=== PATIENT | female | born 1955 | race Caucasian/White ===

== ENCOUNTER → 2017-01-31 | Outpatient (CLI) | payer OTHER | LOC: FIMAGING 08:09 | PROVIDERS: ATTEND Obstetrics & Gynecology Gynecology | DX: Z12.31 Encounter for screening mammogram for malignant neoplasm of breast (principal) | CPT/HCPCS: G0202 ==

== ENCOUNTER → 2017-10-29 | Outpatient (CLI) | payer OTHER ==
[~2017-10-29] MED LIST: IOPAMIDOL (ISOVUE-300) 100 ML BTL ONE
== END ==
LOC: FIMAGING 06:59
PROVIDERS: ATTEND Internal Medicine
DX: D37.6 Neoplasm of uncertain behavior of liver, gallbladder and bile ducts (principal)
CPT/HCPCS: Q9967

== ENCOUNTER 2017-11-04 08:43 | Outpatient (CLI) | payer OTHER ==
[2017-11-04] MEDS ORDERED: MIDAZOLAM 2 MG/2 ML VIAL IVP PRN (09:05)
[2017-11-04] MEDS ORDERED: PROTAMINE SULFATE 50 MG/5 ML VIAL IVP PRN (09:05)
[2017-11-04] MEDS ORDERED: GLUCAGON HCL 1 MG VIAL IVP PRN (09:05)
[2017-11-04] MEDS ORDERED: HEPARIN 10,000 UNIT/10 ML MDV (1,000 UNIT/ML) IVP PRN (09:05)
[2017-11-04] MEDS ORDERED: NALOXONE HCL 0.4 MG/ML INJ IVP PRN (09:05)
[2017-11-04] MEDS ORDERED: FLUMAZENIL 0.5 MG/5 ML MDV IVP PRN (09:05)
[2017-11-04] MEDS ORDERED: MEPERIDINE 25 MG/ML SYR IVP PRN (09:05)
[2017-11-04] MEDS ORDERED: fentaNYL 100 MCG/2 ML INJ IVP PRN (09:05)
[2017-11-04] MEDS ORDERED: ALTEPLASE 2 MG VIAL IVP PRN (09:05)
[2017-11-04] MEDS ORDERED: NALOXONE HCL 0.4 MG/ML INJ ONE (09:14)
[2017-11-04] MEDS ORDERED: ONDANSETRON 4 MG/2 ML VIAL ONE (09:14)
[2017-11-04] MEDS ORDERED: FLUMAZENIL 0.5 MG/5 ML MDV IVP ONE (09:15)
[2017-11-04] MEDS ORDERED: NS 1,000 ML IV SCH (09:15)
[2017-11-04] MEDS ORDERED: fentaNYL 100 MCG/2 ML INJ ONE (09:15)
[2017-11-04] MEDS ORDERED: MIDAZOLAM 2 MG/2 ML VIAL ONE (09:15)
[2017-11-04] MEDS ORDERED: LIDOCAINE 1% 300 MG/30 ML SDV ONE (09:33)
--- NOTE | 2017-11-04 10:07 | PDRADPRE ---
Radiology History & Physical Indication for procedure: liver disease Home medications: Proair Hfa 1 - 2 puffs IH PRN PRN 10/31/17 [Last Taken Unknown] Allergies/Adverse Reactions: Penicillins Allergy (Verified 10/31/17 10:07) Mental status: A&Ox3 Heart exam: regular rate and rhythm Mallampati Score: Class 2 (ASA 2)
[2017-11-04] MEDS ORDERED: ONDANSETRON 4 MG/2 ML VIAL IVP PRN (10:59)
[2017-11-04] MEDS ORDERED: oxyCODONE IR 5 MG TAB PO PRN (10:59)
--- NOTE | 2017-11-04 10:59 | PDRADPN ---
Radiology Procedure Note Date of Procedure: 11/04/17 Radiologist: Bo Stevens Anesthesia: IV Sedation Pre-op Diagnosis: liver mass Post-op Diagnosis: same Procedure: US guided liver mass biopsy Inf/Abcess present in the surg proc area at time of surgery?: No
[2017-11-04 14:37] VITALS: BP 124/85
== END 2017-11-04 14:15 | disposition home or self-care (01) ==
LOC: FIMAGING 08:43
PROVIDERS: ATTEND Internal Medicine
PROC: 0FB13ZX Excision of Right Lobe Liver, Percutaneous Approach, Diagnostic (ICD-10-PCS; principal; 2017-11-04 11:15)
DX: C78.7 Secondary malignant neoplasm of liver and intrahepatic bile duct (principal); R10.11 Right upper quadrant pain
CPT/HCPCS: J2250; J2310; J2405; J3010

== ENCOUNTER → 2017-12-27 | Day surgery (SDC) | payer OTHER ==
[~2017-12-27] MED LIST changes: +ALTEPLASE 2 MG VIAL IVP PRN; +FLUMAZENIL 0.5 MG/5 ML MDV IVP ONE; +FLUMAZENIL 0.5 MG/5 ML MDV IVP PRN; +GLUCAGON HCL 1 MG VIAL IVP PRN; +HEPARIN 10,000 UNIT/10 ML MDV (1,000 UNIT/ML) IVP PRN; -IOPAMIDOL (ISOVUE-300) 100 ML BTL ONE; +IOPAMIDOL (ISOVUE-370) 150 ML BTL IV ONE; +KETOROLAC 15 MG/1 ML SDV ONE; +KETOROLAC 30 MG/1 ML SDV IVP ONE; +LIDOCAINE 1% 300 MG/30 ML SDV ONE; +MEPERIDINE 25 MG/ML SYR IVP PRN; +MIDAZOLAM 2 MG/2 ML VIAL IVP PRN; +MIDAZOLAM 2 MG/2 ML VIAL ONE; +NALOXONE HCL 0.4 MG/ML INJ IVP PRN; +NALOXONE HCL 0.4 MG/ML INJ ONE; +NS 1,000 ML IV ONE; +ONDANSETRON 4 MG/2 ML VIAL IVP ONE; +ONDANSETRON 4 MG/2 ML VIAL IVP PRN; +ONDANSETRON 4 MG/2 ML VIAL ONE; +OXYCODONE/APAP 5/325 TAB PO PRN; +PANTOPRAZOLE SODIUM 40 MG VIAL IVP ONE; +PROTAMINE SULFATE 50 MG/5 ML VIAL IVP PRN; +fentaNYL 100 MCG/2 ML INJ IVP PRN; +fentaNYL 100 MCG/2 ML INJ ONE; +methylPREDNISolone SOD SUCC 125 MG/2 ML VIAL IVP ONE; +methylPREDNISolone SOD SUCC 125 MG/2 ML VIAL ONE
[2017-12-27 10:17] VITALS: BP 140/85
--- NOTE | 2017-12-27 12:25 | PDPROPOC ---
Sedation Plan of Care Sedation Plan of Care: vital signs stable, mental status noted, patient educated of risks, benefits, alternatives, patient can tolerate sedation ASA Classification: ASA 2 Planned drugs: fentanyl, midazolam Mallampati Score: Class 2 Mallampati Reference Image: Patient passed 3-3-2 rule?: Yes
--- NOTE | 2017-12-27 12:25 | PDRADPRE ---
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
--- NOTE | 2017-12-27 14:59 | PDRADPN ---
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 Liver/lung shunt ratio 3%. Successful treatment of right hepatic tumors. Inf/Abcess present in the surg proc area at time of surgery?: No
== END ==
LOC: FIMAGING 09:29
PROVIDERS: ATTEND Radiology Vascular & Interventional Radiology
PROC: 04L33ZZ Occlusion of Hepatic Artery, Percutaneous Approach (ICD-10-PCS; principal; 2017-12-27)
PROC: B44 Imaging, Lower Arteries, Ultrasonography (ICD-10-PCS; principal; 2017-12-27)
PROC: B4121ZZ Fluoroscopy of Hepatic Artery using Low Osmolar Contrast (ICD-10-PCS; principal; 2017-12-27)
PROC: B44LZZZ Ultrasonography of Femoral Artery (ICD-10-PCS; principal; 2017-12-27)
PROC: B41B1ZZ Fluoroscopy of Other Intra-Abdominal Arteries using Low Osmolar Contrast (ICD-10-PCS; principal; 2017-12-27)
DX: C78.7 Secondary malignant neoplasm of liver and intrahepatic bile duct (principal); C69.30 Malignant neoplasm of unspecified choroid
CPT/HCPCS: 37243; 75726; 77790; 78205; 79445; 99152; 99153; A9540; C1769; C1894; C1760; J1200; J1644; J1885; J2250; J2310; J2405; J2930; J3010; Q9967

== ENCOUNTER 2018-01-04 15:24 | Emergency (ER) | payer OTHER ==
[2018-01-04] MEDS ORDERED: MAGNESIUM CITRATE 300 ML BOTTLE PO ONE (17:43)
--- NOTE | 2018-01-04 17:43 | EDPHY ---
H & P Stated Complaint: No BM since 12/27, on oxycodone after IR procedure Time Seen by Provider: 01/04/18 16:35 HPI/ROS: CHIEF COMPLAINT: No bowel movement in 1 week HISTORY OF PRESENT ILLNESS: 60-year-old female with liver cancer presents with no bowel movement in last week. She was recently started on oxycodone for pain control. Last bowel movement was 1 week ago. She has tried multiple laxatives and stool softeners without relief. Associated with mild pelvic cramping. No nausea or vomiting. REVIEW OF SYSTEMS: complete 10 point ROS reviewed and is negative except for the noted findings in the HPI - Personal History Current Tetanus/Diphtheria Vaccine: Unsure Current Tetanus Diphtheria and Acellular Pertussis (TDAP): Unsure - Medical/Surgical History Hx Asthma: Yes Hx Chronic Respiratory Disease: No Hx Diabetes: No Hx Cardiac Disease: No Hx Renal Disease: No Hx Cirrhosis: No Hx Alcoholism: No Hx HIV/AIDS: No Hx Splenectomy or Spleen Trauma: No Other PMH: Liver cancer, asthma, fistulectomy 2004 - Social History Smoking Status: Never smoked Additional Social History: - Physical Exam Exam: General Appearance: Alert, pleasant Eyes: Pupils equal and round, no conjunctival pallor ENT, Mouth: Mucous membranes moist Neck: Normal inspection Respiratory: Lungs are clear to auscultation Cardiovascular: Regular rate and rhythm Gastrointestinal: Abdomen is soft and nontender Rectal: Stool glendy in the vault, no fecal impaction Neurological: A&O, nonfocal, normal gait Skin: Warm and dry Extremities: Nontender, no pedal edema Psychiatric: Mood and affect normal Constitutional: Initial Vital Signs Temperature (C) 37.4 C 01/04/18 15:41 Heart Rate 118 H 01/04/18 15:41 Respiratory Rate 18 01/04/18 15:41 Blood Pressure 103/64 01/04/18 15:41 O2 Sat (%) 95 01/04/18 15:41 O2 Delivery Mode Room Air Allergies/Adverse Reactions: Penicillins Allergy (Verified 10/31/17 10:07) Home Medications: Medication Instructions Recorded Proair Hfa 1 - 2 puffs IH PRN PRN 10/31/17 Medical Decision Making ED Course/Re-evaluation: Soapsuds enema given. The patient had a large bowel movement after the enema. Pt felt much better after BM. Abd soft, NT. Magnesium citrate given for use at home. Differential Diagnosis: includes though not limited to fecal impaction, SBO, diverticulitis - Data Points Medications Given: Discontinued Medications Magnesium Citrate (Magnesium Citrate) 300 ml PO EDNOW ONE Stop: 01/04/18 17:44 Last Admin: 01/04/18 18:00 Dose: 1 btl Departure - Departure Disposition: Home, Routine, Self-Care Clinical Impression: Constipation Qualifiers: Constipation type: drug induced constipation Qualified Code(s): K59.03 - Drug induced constipation Condition: Good Instructions: Magnesium Citrate (By mouth), Constipation (ED), High Fiber Diet (ED) Referrals: Pedrito Douglas MD [Primary Care Provider] - As per Instructions
[2018-01-04 18:03] VITALS: BP 118/78
== END 2018-01-04 18:03 | disposition home or self-care (01) ==
DX: K59.03 Drug induced constipation (principal); Z85.05 Personal history of malignant neoplasm of liver; Z79.891 Long term (current) use of opiate analgesic

== ENCOUNTER 2018-01-10 14:21 | Emergency (ER) | payer OTHER ==
[2018-01-10] MEDS ORDERED: NS 1,000 ML IV ONE (14:52)
--- NOTE | 2018-01-10 14:55 | EDPHY ---
HPI/HX/ROS/PE/MDM Narrative: CHIEF COMPLAINT: Fever, malaise HPI: The patient is a 62 y/o female with melanoma metastatic to her liver arriving with her family complaining of a fever and malaise for the last 2 days. She reports she's had difficulty recovering to baseline since an IR procedure on 12/27/17, 2 weeks ago, where they directed radiation directly into her liver. A week after this procedure she had severe constipation thought secondary to pain medication and required an enema in the ED for relief. This issue has not recurred. On Saturday, 2 days ago, she was evaluated at [facility] for weight loss and during that visit they noted a fever. Her fever continued yesterday and she started a course of Ciprofloxacin, of which she has taken two doses. She saw her physician at [facility] this morning for follow up and had multiple labs performed including blood cultures, stool sample, and UA that she has not yet received results for. She was advised to come to the ED for worsening symptoms. She says currently, "I'm generally feeling crummy." She's noticed some mild rhinorrhea, headaches, and diaphoresis that she attributes to the radiation therapy. She denies new cough, vomiting, diarrhea. She notes a recent PET scan did not show metastases. REVIEW OF SYSTEMS: Aside from elements discussed in the HPI, a comprehensive 10-point review of systems was reviewed and is negative. 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 Prior medical records reviewed including ED visit 01/04/18 for no bowel movement. Lab results from [facility] today reviewed. PHYSICAL EXAM: General:Patient is alert, in no acute distress. Thin. ENT:Eyes are normal to inspection. ENT inspection normal. Neck: Normal inspection. Full range of motion. Respiratory:No respiratory distress. Breath sounds normal bilaterally. Cardiovascular: Regular rate and rhythm. Strong peripheral pulses. Normal cap refill. Abdomen:The abdomen is nontender to palpation. There are no peritoneal signs. Back: Normal to inspection. No tenderness to palpation. Skin: Normal color. No rash. Warm and dry. Extremities: Normal appearance. Full range of motion. Neuro: Oriented x3. Normal motor function. Normal sensory function. ED Course: This is a 62 y/o female with liver cancer who presents with a 2-day history of recurrent fever and associated malaise. She is thin-appearing on exam with no other acute findings. Concern for various sources of infection. She is currently afebrile and normotensive. Plan for IV, labs including cultures, and symptom management as needed. 1L IV NS ordered. Chest x-ray: negative. Respiratory pathogen panel negative. UA negative. Lactic acid elevated 2.5. 1L IV NS ordered. 1900: Consulted with Dr. Plaza, oncology. He recommends discharge with outpatient followup. Reassessed patient and discussed recommendations. She is comfortable with plan for discharge home. Return precautions discussed. - Data Points Imaging Results: Imaging Impressions Chest X-Ray 01/10/18 14:51 Impression: Normal chest. Imaging: I viewed and interpreted images myself Laboratory Results: 01/10/18 01/10/18 17:03 15:15 VBG Lactic Acid 2.5 mmol/L H mmol/L (0.7-2.1) Urine Color PALE YELLOW Urine Appearance CLEAR Urine pH 5.0 (5.0-7.5) Ur Specific [place] 1.003 (1.002-1.030) Urine Protein NEGATIVE (NEGATIVE) Urine Ketones NEGATIVE (NEGATIVE) Urine Blood NEGATIVE (NEGATIVE) Urine Nitrate NEGATIVE (NEGATIVE) Urine Bilirubin NEGATIVE (NEGATIVE) Urine Urobilinogen NEGATIVE EU EU (0.2-1.0) Ur Leukocyte Esterase NEGATIVE (NEGATIVE) Urine Glucose NEGATIVE (NEGATIVE) Medications Given: Discontinued Medications Sodium Chloride (Ns) 1,000 mls @ 0 mls/hr IV EDNOW ONE; Wide Open PRN Reason: Protocol Stop: 01/10/18 14:53 Last Admin: 01/10/18 15:15 Dose: 1,000 mls Ibuprofen (Motrin) 200 mg PO EDNOW ONE Stop: 01/10/18 17:45 Last Admin: 01/10/18 17:48 Dose: 200 mg Microbiology Results: MICROBIOLOGY 01/10/18 15:59 Nasal, Sinus - Swab Respiratory Panel (PCR) - Final No Organism Detected General Time Seen by Provider: 01/10/18 14:46 Initial Vital Signs: Initial Vital Signs Temperature (C) 37.5 C 01/10/18 14:37 Heart Rate 122 H 01/10/18 14:37 Respiratory Rate 20 01/10/18 14:37 Blood Pressure 109/66 01/10/18 14:37 O2 Sat (%) 96 01/10/18 14:37 O2 Delivery Mode Room Air Allergies/Adverse Reactions: Penicillins Allergy (Verified 10/31/17 10:07) Home Medications: Medication Instructions Recorded Proair Hfa 1 - 2 puffs IH PRN PRN 10/31/17 Cipro 01/10/18 Departure - Departure Disposition: Home, Routine, Self-Care Clinical Impression: fever of unknown etiology Condition: Good Instructions: Fever in Adults (ED) Additional Instructions: Follow up with your oncologist as needed. Return to the ED for any worsening of condition. Referrals: Pedrito Douglas MD [Primary Care Provider] - As per Instructions Report Scribed for: Luis E Cox Report Scribed by: Beryl Rodrigues Date of Report: 01/10/18 Time of Report: 14:52 Physician Review and Approval Statement: Portions of this note were transcribed by an ED scribe. I personally performed the history, physical exam, and medical decision making; and confirm the accuracy of the information in the transcribed note.
[2018-01-10] MEDS ORDERED: IBUPROFEN 200 MG TAB PO ONE (17:44)
[2018-01-10 19:25] VITALS: BP 119/76
== END 2018-01-10 19:23 | disposition home or self-care (01) ==
DX: R50.9 Fever, unspecified (principal); R53.81 Other malaise; C22.9 Malignant neoplasm of liver, not specified as primary or secondary; E86.9 Volume depletion, unspecified

== ENCOUNTER 2018-02-04 10:32 | Inpatient (IN) | payer OTHER ==
[2018-02-04] MEDS ORDERED: HYDROmorphONE/DILAUDID 2 MG/ML INJ IVP ONE ×2 (11:09→12:48)
[2018-02-04] MEDS ORDERED: ONDANSETRON 4 MG/2 ML VIAL IVP ONE (11:09)
[2018-02-04] MEDS ORDERED: NS 1,000 ML IV ONE (11:09)
--- NOTE | 2018-02-04 11:12 | EDPHY ---
H & P Time Seen by Provider: 02/04/18 10:49 HPI/ROS: CHIEF COMPLAINT: Abdominal pain HISTORY OF PRESENT ILLNESS: Patient has a history of melanoma metastatic to liver. Interventional Radiology procedure for "Y90" on 12/27, biopsy on November 04. Has had low-grade right-sided upper abdominal discomfort since her diagnosis and biopsy in October, had much worse pain starting at 4:00 a.m. Today. It radiates all the way across her upper abdomen to the middle. Severe and not influence or helped by 2 OxyContin tablets that she took this morning. Worse with movement. Not associated with vomiting or diarrhea. No fever or chills. REVIEW OF SYSTEMS: Eye: no change in vision ENT: no sore throat Cardiac: no chest pain or syncope Pulmonary: no cough or SOB Abdomen: HPI Musculoskeletal: no back pain Skin: no rash Neuro: no headache Constitutional: no fever : no urinary symptoms A comprehensive 10 point review of systems is otherwise negative aside from elements mentioned in the history of present illness. PAST MEDICAL HISTORY: Melanoma metastatic to liver, asthma Social history: Here with spouse General Appearance: Alert and conversant, cooperative. Eyes: No scleral icterus. ENT, Mouth: Normal mucous membranes. Respiratory: Normal respiratory effort, breath sounds equal, lungs are clear to auscultation. Cardiovascular: Regular rate and rhythm. Gastrointestinal: Right upper quadrant and right lower quadrant abdominal tenderness, decreased bowel sounds. Neurological: Alert, face symmetric, normal motor and sensory in extremities. Skin: Warm and dry, no rashes. Musculoskeletal: No peripheral edema. Psychiatric: Not agitated. Emergency Department course/MDM: Dilaudid 1 mg IV, CT scanning discussed and consented. Liver function test and lipase. 1216: CT per Isuani shows worse liver mets, otherwise negative; no other reason for abdominal pain. Discussed results with the patient, plan to admit for pain control, oncology consultation. Patient's symptoms are pretty clearly abdominal, I think that pulmonary embolism or cardiac problem is unlikely. Does not appear to at this time have acute surgical abdominal process. Smoking Status: Never smoked Constitutional: Initial Vital Signs Temperature (C) 37.1 C 02/04/18 10:40 Heart Rate 101 H 02/04/18 10:40 Respiratory Rate 16 02/04/18 10:40 Blood Pressure 107/72 02/04/18 10:40 O2 Sat (%) 95 02/04/18 10:40 O2 Delivery Mode Room Air Allergies/Adverse Reactions: Penicillins Allergy (Verified 02/04/18 13:03) Home Medications: Medication Instructions Recorded Ibuprofen [Motrin (*)] 200 mg PO DAILY PRN 02/04/18 oxyCODONE IR [Oxycodone Ir (*)] 5 mg PO Q4 PRN 02/04/18 Medical Decision Making - Diagnostics Imaging Results: Imaging Impressions Abdomen CT 02/04/18 11:29 Impression: 1. Worsening diffuse hepatic metastasis and enlargement of the liver with partial necrosis of the right lobe hepatic metastasis post Y-90 intra-arterial therapy. 2. Mild constipation without bowel obstruction or dilation. 3. No urinary tract obstruction, abscess or pneumoperitoneum. 4. Minimal ascites in the abdomen and pelvis. Findings and recommendations discussed with Emergency Department physician, Alphonso Jenkins at 1221 hour, 02/04/2018. Final report concurs with initial preliminary interpretation. Differential Diagnosis: Differential diagnosis considered for abdominal pain including but not limited to appendicitis, cholecystitis, pancreatitis, increasing tumor, bowel obstruction. Consult/Admit Bed Type: [place] [id number] - Data Points Laboratory Results: Laboratory Results 02/04/18 11:13 02/04/18 11:13 02/04/18 02/04/18 02/04/18 11:18 11:13 11:13 WBC 9.61 10^3/uL H 10^3/uL (3.80-9.50) RBC 3.96 10^6/uL L 10^6/uL (4.18-5.33) Hgb 10.6 g/dL L g/dL (12.6-16.3) POC Hgb 12.2 gm/dL L gm/dL (12.6-16.3) Hct 33.5 % L % (38.0-47.0) POC Hct 36 % L % (38-47) MCV 84.6 fL fL (81.5-99.8) MCH 26.8 pg L pg (27.9-34.1) MCHC 31.6 g/dL L g/dL (32.4-36.7) RDW 15.1 % % (11.5-15.2) Plt Count 473 10^3/uL H 10^3/uL (150-400) MPV 9.9 fL fL (8.7-11.7) Neut % (Auto) 82.0 % H % (39.3-74.2) Lymph % (Auto) 10.9 % L % (15.0-45.0) [place] % (Auto) 6.0 % % (4.5-13.0) Eos % (Auto) 0.3 % L % (0.6-7.6) Baso % (Auto) 0.5 % % (0.3-1.7) Nucleat RBC Rel Count 0.0 % % (0.0-0.2) Absolute Neuts (auto) 7.87 10^3/uL H 10^3/uL (1.70-6.50) Absolute Lymphs (auto) 1.05 10^3/uL 10^3/uL (1.00-3.00) Absolute Monos (auto) 0.58 10^3/uL 10^3/uL (0.30-0.80) Absolute Eos (auto) 0.03 10^3/uL 10^3/uL (0.03-0.40) Absolute Basos (auto) 0.05 10^3/uL 10^3/uL (0.02-0.10) Absolute Nucleated RBC 0.00 10^3/uL 10^3/uL (0-0.01) Immature Gran % 0.3 % % (0.0-1.1) Immature Gran # 0.03 10^3/uL 10^3/uL (0.00-0.10) POC Sodium 137 mEq/L mEq/L (135-145) Sodium 136 mEq/L mEq/L (135-145) POC Potassium 4.4 mEq/L mEq/L (3.3-5.0) Potassium 4.7 mEq/L mEq/L (3.3-5.0) POC Chloride 101 mEq/L mEq/L (97-110) Chloride 100 mEq/L mEq/L (97-110) Carbon Dioxide 24 mEq/l mEq/l (22-31) Anion Gap 12 mEq/L mEq/L (8-16) POC BUN 18 mg/dL mg/dL (7-23) BUN 19 mg/dL mg/dL (7-23) Creatinine 0.5 mg/dL L mg/dL (0.6-1.0) POC Creatinine 0.4 mg/dL L mg/dL (0.6-1.0) Estimated GFR > 60 Glucose 113 mg/dL H mg/dL (70-100) POC Glucose 114 mg/dL H mg/dL (70-100) Calcium 9.4 mg/dL mg/dL (8.5-10.4) Total Bilirubin 0.5 mg/dL mg/dL (0.1-1.4) Conjugated Bilirubin 0.2 mg/dL mg/dL (0.0-0.5) Unconjugated Bilirubin 0.3 mg/dL mg/dL (0.0-1.1) AST 39 IU/L IU/L (14-46) ALT 33 IU/L IU/L (9-52) Alkaline Phosphatase 228 IU/L H IU/L (38-126) Total Protein 7.8 g/dL g/dL (6.3-8.2) Albumin 3.8 g/dL g/dL (3.5-5.0) Lipase 176 IU/L IU/L (23-300) Medications Given: Discontinued Medications Hydromorphone HCl (Dilaudid) 1 mg IVP EDNOW ONE Stop: 02/04/18 11:10 Last Admin: 02/04/18 11:17 Dose: 1 mg Hydromorphone HCl (Dilaudid) 1 mg IVP EDNOW ONE Stop: 02/04/18 12:49 Last Admin: 02/04/18 12:53 Dose: 1 mg Sodium Chloride (Ns) 1,000 mls @ 0 mls/hr IV EDNOW ONE; Wide Open PRN Reason: Protocol Stop: 02/04/18 11:10 Last Admin: 02/04/18 11:17 Dose: 1,000 mls Ondansetron HCl (Zofran) 4 mg IVP EDNOW ONE Stop: 02/04/18 11:10 Last Admin: 02/04/18 11:17 Dose: 4 mg Point of Care Test Results: Chemistry 02/04/18 11:18 POC Sodium 137 mEq/L mEq/L (135-145) POC Potassium 4.4 mEq/L mEq/L (3.3-5.0) POC Chloride 101 mEq/L mEq/L (97-110) POC BUN 18 mg/dL mg/dL (7-23) POC Creatinine 0.4 mg/dL L mg/dL (0.6-1.0) POC Glucose 114 mg/dL H mg/dL (70-100) ISTAT H&H 02/04/18 11:18 POC Hgb 12.2 gm/dL L gm/dL (12.6-16.3) POC Hct 36 % L % (38-47) Departure - Departure Disposition: [facility] Inpatient Acute Clinical Impression: Abdominal pain Qualifiers: Abdominal location: right upper quadrant Qualified Code(s): R10.11 - Right upper quadrant pain Melanoma Qualifiers: Melanoma location: unspecified site Qualified Code(s): C43.9 - Malignant melanoma of skin, unspecified Condition: Fair
[2018-02-04 11:30] LABS: PLATELET COUNT 473 10^3/uL (150-400)
[2018-02-04] MEDS ORDERED: IOPAMIDOL (ISOVUE-300) 100 ML BTL ONE (11:39)
[2018-02-04] MEDS ORDERED: OXYCODONE/APAP 5/325 TAB PO PRN (15:39)
[2018-02-04] MEDS ORDERED: ONDANSETRON 4 MG/2 ML VIAL IVP PRN (15:39)
[2018-02-04] MEDS ORDERED: NALOXONE HCL 0.4 MG/ML INJ IVP PRN (15:40)
[2018-02-04] MEDS ORDERED: HYDROmorphONE/DILAUDID 6 MG/30 ML PCA IV PRN (15:40)
[2018-02-04] MEDS ORDERED: LACTULOSE 20 GM/30 ML UDCUP PO PRN (15:42)
[2018-02-04] MEDS ORDERED: BISACODYL 10 MG SUPP PR PRN (15:42)
[2018-02-04] MEDS ORDERED: MAGNESIUM HYDROXIDE 30 ML UDCUP PO PRN (15:42)
[2018-02-04] MEDS ORDERED: POLYETHYLENE GLYCOL 3350 17 GM PKT PO PRN (15:42)
[2018-02-04] MEDS ORDERED: NS 1,000 ML IV SCH (15:45)
--- NOTE | 2018-02-04 16:14 | GHP ---
DATE OF ADMISSION: 02/04/2018 CHIEF COMPLAINT: Abdominal pain. HISTORY OF PRESENT ILLNESS: This is a 62-year-old female with known metastatic melanoma to the liver who presents with abdominal pain. Notably, she had a liver biopsy early October and Y90 chemoembolizat ion at the end of November. After those procedures, she had a week or so of abdominal pain sometimes a ssociated with fever. After that, she has been feeling quite good for the last week and a half doing PT with mild abdominal discomfort. Last night, she said that her ribs began hurting. She woke up a t 3 or 4 a.m. with acute severe pain in a bandlike distribution across the abdomen. It is worse on t he right side than the left associated with some nausea. No vomiting. She had normal bowel movement yesterday. No bowel movements or diarrhea today. She has had no recent fevers. PAST MEDICAL/SURGICAL HISTORY: 1. Metastatic melanoma diagnosed 12 years ago, recently found to be metastatic to her liver. 2. Asthma. 3. Fistulectomy. 4. [place] teeth removal. MEDICATIONS: Please see medication reconciliation. ALLERGIES: Penicillin. SOCIAL HISTORY: She is accompanied by her . FAMILY HISTORY: No melanoma. REVIEW OF SYSTEMS: A 10-point review of systems is conducted and is negative, except per HPI. PHYSICAL EXAM: VITAL SIGNS: Blood pressure 110/69, heart rate 87, respiration rate 16, saturating 9 7% on room air, temperature is 37. GENERAL: The patient is a pleasant female who is resting comfort ably in no acute distress. HEENT: Normocephalic, atraumatic. CARDIOVASCULAR: Regular rate and rhy thm. No murmurs, rubs, or gallops. PULMONARY: Lungs clear to auscultation bilaterally. ABDOMEN: Marked hepatomegaly. She is very tender to palpation in the right side much more so than the left si de of her abdomen. I do not really appreciate any guarding or rebound. : No [place]. NEUROLOGIC: Alert and oriented x3. PSYCHIATRIC: Normal mood and affect. SKIN: No rash. LABORATORY: Basic metabolic panel is normal. Creatinine is 0.5. Alkaline phosphatase is 228. Whit e count is 9.6, hemoglobin 10.6, and platelets are 473. IMAGIN. I personally viewed and interpreted her abdominal CT scan that shows marked hepatomegaly. There is a right-sided necrotic part of her liver. 2. I reviewed her chart. IMPRESSION/PLAN: 1. Abdominal pain: This likely due to hepatic capsular stretch from her hepatomegaly. I think it i s reasonable to treat her with a combination of acetaminophen, oxycodone, a RN LABOR DELIVERY, as well as Toradol f or tonight. We will follow her course very closely. Will recheck a creatinine tomorrow as well. 2. Metastatic melanoma: Dr. Plaza will see her as well in consultation today. Appreciate any rec ommendations that he may have. She underwent Y90 intra-arterial radioembolization at the end of . Unfortunately, it appears that her metastatic disease is worse today. 3. Constipation: She will get a bowel regimen. /[id number]/MODL
[2018-02-04] MEDS: KETOROLAC 15 MG/1 ML SDV IVP SCH ×2 (17:17→23:55)
--- NOTE | 2018-02-04 19:15 | GCON ---
ONCOLOGY CONSULTATION DATE OF CONSULTATION: 02/04/2018 REASON FOR CONSULTATION: Metastatic melanoma. HISTORY OF PRESENT ILLNESS: Argenis is a pleasant 62-year-old female with a recent diagnosis of metast atic choroidal melanoma involving liver. The patient's original diagnosis with an early stage choroi fish melanoma was made in 2005. She was treated with an I-125 radioactive plaque at that time. The virgilio garcia unfortunately developed metastatic disease in October of this year. She was initially treated wi yttrium-90 SIR-Spheres treatment to the right hepatic lobe, December 27, 2017. She had significant right upper quadrant pain following the procedure, which has slowly improved. She was briefly consid ered for clinical trials participation at [facility], but was not found to be a candidate. She has diffuse metastasis involving liver. She recently met with Dr. Luna on January 29. The option of palliative nivolumab was discussed. The virgilio garcia and her wanted some time to think about this. She states today that she has decided n ot to pursue any further active therapy for her metastatic melanoma. She states she was actually doing quite well over the past 2 weeks with no right upper quadrant pain. She was not on any significant pain medication. At approximately 4 in the morning today, she devel oped acute right upper quadrant pain. She presented to the emergency department. A CT of the abdome n revealed significant worsening of her hepatic disease burden when compared to her prior study, done October 2017. There was evidence of partial necrosis of the right lobe of a hepatic metastasis related to prior Y-90 treatment. She had mild constipation and minimal ascites. She was given pain medicat ion in the emergency department and admitted for further pain control. She will be started on a narc otic SUGGESTION CLERK this evening. When seen, her is at the bedside. She reports her last bowel movemen t was yesterday. She denies any fevers or chills. She denies nausea, vomiting, or diarrhea. She de nies extremity pain or swelling. PAST MEDICAL HISTORY: 1. Asthma. 2. Gilbert syndrome. FAMILY MEDICAL HISTORY: Negative for malignancy. SOCIAL HISTORY: The patient is to [place]. 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 She drinks alcoho l occasionally. She has no children. REVIEW OF SYSTEMS: As outlined above. Remainder of 10-point review of systems otherwise negative. PHYSICAL EXAM: GENERAL: Patient is resting comfortably in bed. She is in no acute distress. HEENT : Pupils equal. Sclerae nonicteric. ABDOMEN: Nondistended. Hepatomegaly is present. Patient has reproducible right upper quadrant tenderness without guarding or rebound. Bowel sounds normoactive. EXTREMITIES: No extremity swelling or edema. No skin rash. NEURO: Patient is alert, oriented, a nd appropriate. CT results as outlined above. LABORATORY STUDIES: Sodium 137, potassium 4.4, chloride 101, bicarb 24. BUN 19, creatinine 0.5. Bi lirubin 0.5, AST 39, ALT 33, alkaline phosphatase 228. IMPRESSION: 1. Metastatic choroidal melanoma with diffuse hepatic involvement. 2. Right upper quadrant pain, secondary to #1. Argenis Kessler is a pleasant 62-year-old female who is admitted with worsening pain due to d iffuse liver metastasis. Her CT shows significant progression when compared to a study done in October. This was discussed with the patient and her . We discussed her wishes surrounding care. She recently met with her primary oncologist, Dr. Luna, to discuss this as well. Argenis is very clear this evening that she does not want to pursue any further palliative therapy for her metastatic melanoma. She was offered a trial of nivolumab, and after much consideration, is decl ining this therapy. She would like to focus on quality of life. She is understanding and accepting of the terminal nature of her illness and simply wants to be comfortable. I think her decision is quite reasonable. She will be placed on a narcotic SUGGESTION CLERK this evening. We brisa l then transition her to oral medicines and potentially a long-acting agent such as a fentanyl patch. I have recommended involving Hospice, given her decision. She is agreeable to this, and a Hospice co nsultation will be requested during this hospital stay. The patient and her asked multiple questions which were answered. I will notify Dr. Luna of h er admission and her decision. Total time for today's visit was approximately 45 minutes, of which greater than 50% was spent in cou nseling and care coordination. /[id number]/MODL
[2018-02-04] MEDS: SENNOSIDES/DOCUSATE SODIUM TAB PO SCH (20:31)
[2018-02-05 05:16] LABS: PLATELET COUNT 352 10^3/uL (150-400)
[2018-02-05] MEDS: KETOROLAC 15 MG/1 ML SDV IVP SCH ×5 (06:06→23:41)
--- NOTE | 2018-02-05 08:46 | ASMTCMCOM ---
CM Note CM Note Notes: Chart reviewed. Patient with hx of melanoma with metastatic disease admitted via ED with c/o increasing abdominal pain. Normally lives with her . No clear plan of care. CM to follow for needs. Just recently discharged from [facility]. Plan: TBD Date Signed: 02/05/2018 08:45 AM Electronically Signed By:Enedelia Markham RN
[2018-02-05] MEDS: SENNOSIDES/DOCUSATE SODIUM TAB PO SCH ×2 (10:07→21:33)
[2018-02-05] MEDS: ENOXAPARIN 40 MG/0.4 ML SYR SC SCH (10:31)
--- NOTE | 2018-02-05 11:44 | ASMTCMCOM ---
CM Note CM Note Notes: Hospice order noted. Erick Hernandez and I met with the patient Argenis and her [place]. We discussed her conversation with Dr. Plaza and the possibility of hospice. She feels well today and doesn't really feel like hospice timing is right now but as our conversation unfolded it was found that she is acutely aware that her disease has progressed and that her prior experience with hospice was not so positive. She would like to meet with them today. She hopes to go home later today or tomorrow. [facility]. Call placed to Sveta Jovel and she will have a liaison Huyen meet with the patient and her . Plan: Likely home independent with [facility] Date Signed: 02/05/2018 11:43 AM Electronically Signed By:Enedelia Markham RN
--- NOTE | 2018-02-05 14:32 | HOSPPROG ---
Hospitalist Progress Note Assessment/Plan: # pain from hepatic capsule stretch - much better with toradol - will try toradol PO (patient's will fill at pharmacy and bring in) - tramadol # metastatic ocular melanoma, significant hepatic disease sp Y - follows with Dr Luna # dispo - tomorrow if tolerates PO pain control - met with Heri today Subjective: pain much better controlled - she feels the toradol has been very effective Objective: Vital Signs Temp Pulse Resp BP Pulse Ox 36.5 C 86 16 119/78 95 02/05/18 12:18 02/05/18 12:18 02/05/18 12:18 02/05/18 12:18 02/05/18 12:18 Laboratory Results 02/05/18 04:09 02/05/18 04:09 02/04/18 02/05/18 02/06/18 05:59 05:59 05:59 Intake Total 1000 700 Output Total 300 1200 Balance 700 -500 - Physical Exam Constitutional: no apparent distress, appears nourished Eyes: anicteric sclera Ears, Nose, Mouth, Throat: moist mucous membranes Cardiovascular: No edema Respiratory: No respiratory distress Gastrointestinal: No distension Genitourinary: No rios in urethra Skin: warm Musculoskeletal: full muscle strength Neurologic: AAOx3 Psychiatric: not anxious ICD10 Worksheet Patient Problems: Problems Problem Status Onset Constipation Acute Abdominal pain Acute Melanoma Acute
[2018-02-05] MEDS: traMADol 50 MG TAB PO PRN (14:34)
[2018-02-05] MEDS: ONDANSETRON DISINTEGRATING 4 MG TAB PO PRN (14:34)
--- NOTE | 2018-02-05 15:42 | SOAPPROG ---
SOAP Progress Note Assessment/Plan: Assessment: 1) Metastatic chorodial melanoma with diffuse hepatic involvement 2) RUQ pain secondary to #1 Plan: Argenis's pain is much better with Toradol. She will remain inpatient this evening. If she has no further issues with pain, plan d/c home tomorrow. She has met with [facility]. She does not feel ready for Hospice care, but is considering palliative care services through [facility] at discharge. Argenis and her had multiple questions regarding end of life issues which I answered. Argenis does not want any further active anti cancer therapy. Her supports her decision. Case d/w / Jessika. 02/05/18 15:39 02/05/18 15:39 02/05/18 15:43 Subjective: Feels better with Toradol. at bedside Objective: Vital Signs Temp Pulse Resp BP Pulse Ox 36.5 C 86 16 119/78 95 02/05/18 12:18 02/05/18 12:18 02/05/18 12:18 02/05/18 12:18 02/05/18 12:18 Laboratory Results 02/05/18 04:09 02/05/18 04:09 02/04/18 02/05/18 02/06/18 05:59 05:59 05:59 Intake Total 1000 700 Output Total 300 1200 Balance 700 -500 - Time Spent With Patient Time Spent With Patient: 25 minutes Physical Exam - Physical Exam General Appearance: alert, no apparent distress EENT: PERRL/EOMI Neuro/Psych: normal mood/affect, oriented x 3 ICD10 Worksheet Patient Problems: Problems Problem Status Onset Abdominal pain Acute Melanoma Acute Constipation Acute
--- NOTE | 2018-02-05 16:16 | PDMN ---
Medical Necessity Medical necessity: Change to inpt as of 02/05/18 @ 3405. Pt meets inpt criteria per MD order and Pain Management GRG/Medical Oncology GRG. 62 y/o w/metastatic melanoma to liver presented w/abdominal pain likely due to hepatic capsular stretch from hepatomegaly. IV Dialaudid VENEER MARKER, IV Toradol initiated. Anticipate> 2MN for ongoing pain control and med determination to provide adequate pain control once dc'd.
[2018-02-05] MEDS: KETOROLAC 10 MG PO PRN ×2 (17:27→23:42)
[2018-02-06] MEDS: traMADol 50 MG TAB PO PRN ×2 (02:44→10:34)
[2018-02-06] MEDS: KETOROLAC 10 MG PO PRN ×2 (06:18→12:09)
[2018-02-06] MEDS: KETOROLAC 15 MG/1 ML SDV IVP SCH (06:39)
[2018-02-06 08:01] VITALS: BP 128/69
[2018-02-06] MEDS: ONDANSETRON DISINTEGRATING 4 MG TAB PO PRN (08:28)
[2018-02-06] MEDS ORDERED: HYDROmorphONE/DILAUDID 2 MG TAB PO PRN (09:28)
[2018-02-06] MEDS: ENOXAPARIN 40 MG/0.4 ML SYR SC SCH (10:13)
--- NOTE | 2018-02-06 10:19 | GDS ---
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 HOSPITAL COURSE: This is a 62-year-old female, who presented with quite acute abdominal pain. She h as recently had recurrence of her ocular melanoma in her liver. She had undergone a Y-90 procedure. She was recovering from this with some ongoing lingering pain. Pain was much more acute which promp narendra her admission. She has had a very good response to Toradol IV overall. I have given her a presc ription for oral Toradol on discharge. She will take this cautiously. We have discussed the risks o f long-term Toradol use primarily including arrhythmias as well as GI bleeds. She will consider the risks and benefits of this medicine moving forward. We discussed multiple other options. One of her goals is to not take too many narcotics given how foggy they make her feel. Because of this, I have given her prescription for tramadol which she has had some success with as well as Dilaudid which radha burgos will try taking orally at night. She has not had much success with oxycodone in the past. She is comfortable with these plans. She will follow up with Dr. Luna within 1 week or so to evaluate her re sponse to these pain medications. She has also seen Palliative Care here and will get additional hel p from Palliative Care as an outpatient. BILLING: I spent more than 30 minutes on the day of discharge coordinating care. /[id number]/MODL
[2018-02-06] MEDS: SENNOSIDES/DOCUSATE SODIUM TAB PO SCH (10:34)
--- NOTE | 2018-02-06 10:40 | ASMTLACE ---
LACE Length of stay for Answers: Less than 1 day current admission Comorbidities - select Answers: Any tumor (including all that apply lymphoma or leukemia) Opioid dependence / Chronic pain Other Notes: Asthma # of Emergency department Answers: 3-4 visits in the last 6 months Score: 10 Date Signed: 02/06/2018 10:39 AM Electronically Signed By:Jaki Merino
== END 2018-02-06 12:34 | disposition home or self-care (01) | DRG 437 ==
LOC: INTOOBSV 12:47 → F1N 13:14 → OBSVTOIN 02-05 14:29
PROVIDERS: ADMIT Student in an Organized Health Care Education/Training Program; ATTEND Student in an Organized Health Care Education/Training Program
DX: C78.7 Secondary malignant neoplasm of liver and intrahepatic bile duct (principal); G89.3 Neoplasm related pain (acute) (chronic); E86.9 Volume depletion, unspecified; K59.00 Constipation, unspecified; Z85.820 Personal history of malignant melanoma of skin; J45.909 Unspecified asthma, uncomplicated
CPT/HCPCS: 82435-PO; 82565-PO; 82947-PO; 84132-PO; 84295-PO; 84520-PO; 85014-PO; 96374; G0378; J1170; J1885; J2405; Q9967

== ENCOUNTER → 2018-08-20 | Outpatient (CLI) | payer OTHER | LOC: FIMAGING 07:15 | PROVIDERS: ATTEND Internal Medicine Hospice and Palliative Medicine | DX: R18.8 Other ascites (principal) ==